=== PATIENT | female | born 1975 | race Caucasian/White ===

== ENCOUNTER 2016-11-12 14:04 | Emergency (ER) | payer MEDICAID ==
[~2016-11-12] VITALS: Ht 162.6 cm; Wt 78.5 kg
[~2016-11-12 14:04] MED LIST: AUGM875T PO; BENZ100 PO; CELE100C PO; OMEP20TA39 PO; SERT50 PO; ZOLP10TA3 PO
[2016-11-12 14:10] VITALS: BP 125/85; PULSE 105; RESP 18; TEMP 98.2; O2SAT 98
--- NOTE | 2016-11-12 14:26 | PD ---
HPI Chief Complaint: Abdominal Pain Time Seen by Provider: 14:15 Travel History International Travel<30 days: No Contact w/Intl Traveler<30days: No Traveled to known affect area: No History of Present Illness HPI The patient is a 40-year-old female who presents emergency department for frequency, urgency, and suprapubic discomfort. The patient has a history of UTIs with similar symptoms in the past. She notes a 4 day history of frequency, urgency, with episodes where she only voids a small amount of urine, however, will need to urinate once again in 10 minutes. She denies any actual dysuria or burning, but states she normally does not have burning when she has a UTI. She does complain of mild suprapubic discomfort and bloating but denies any back pain. Her last menstrual cycle was 2 weeks ago, history of tubal ligation, denies . She denies any acute vaginal discharge. She denies any hematuria or history of nephrolithiasis. She does complain of mild nausea, however, was able to eat lunch without difficulty prior to arrival. She denies any vomiting, diarrhea, change in bowel habits. The patient's primary physician is Dr. Liao. [facility] Past Medical History Arthritis: Yes Anxiety: Yes Depression: Yes Cancer: No Diabetes: No Diminished Hearing: No Endocrine: No Gastrointestinal Disorders: Yes (ACID REFLUX, INFLAMMED ESOPHAGUS) GERD: Yes Glaucoma: No Hepatitis: No Hiatal Hernia: No Hypertension: No Immune Disorder: No Musculoskeletal: Yes (SCOLIOSIS, ARTHRITIS ) Neurologic: Yes (HEADACHES) Psychiatric: Yes (ANXIETY) Immunizations Current: Yes Thyroid Disease: No ?: Not Menopausal: No : 7 Para: 2 Miscarriage: 3 : 1 Dilation and Curettage (D&C): Yes (x 1 -05/09) Tubal Ligation: Yes Past Surgical History AICD: No Body Medical Devices: BREASTS Gynecologic Surgery: Yes (HX OF CONE BIOPSY, D & C X2)) Joint Replacement: No Pacemaker: No Thoracic Surgery: Yes (FREDERIC BREAST AUGMENTATION) Other Surgery: Yes (TUMOR REMOVAL RIGHT THUMB 09/18/13) Social History Alcohol Use: Yes (occas. mix drinks) Tobacco Use: Yes (1/2 -1 PPD) Substance Use: No Allergies-Medications (Allergen,Severity, Reaction): Coded Allergies: Beba (Verified Allergy, Severe, Rash, 11/12/16) Sulfa (Verified Allergy, Severe, Anaphylaxis, 11/12/16) Reported Meds & Prescriptions Reported Meds & Active Scripts Active Reported Ambien (Zolpidem Tartrate) 10 Mg Tab 10 Mg PO HS PRN Omeprazole 40 Mg Cap 40 Mg PO DAILY Celebrex (Celecoxib) 200 Mg Cap 200 Mg PO BID Zoloft (Sertraline HCl) 50 Mg Tab 50 Mg PO DAILY Review of Systems Except as stated in HPI: all other systems reviewed are Neg General / Constitutional: No: Fever Gastrointestinal: Positive: Nausea, No: Vomiting, Abdominal Pain, Constipation , Changes in Bowel Habits Genitourinary: Positive: Urgency, Frequency, Pelvic Pain, No: Dysuria, Hematuria, Discharge, Vaginal Bleeding Physical Exam Narrative GENERAL: Awake, alert, very pleasant 40-year-old female who appears her stated age and is in no acute respiratory distress. SKIN: Focused skin assessment warm/dry. HEAD: Atraumatic. Normocephalic. EYES: Pupils equal and round. No scleral icterus. No injection or drainage. ENT: No nasal bleeding or discharge. Mucous membranes pink and moist. NECK: Trachea midline. No JVD. GASTROINTESTINAL: Abdomen soft, mild suprapubic tenderness. No rebound tenderness, guarding, rigidity. Back: No CVA tenderness. MUSCULOSKELETAL: No obvious deformities. No clubbing. No cyanosis. No edema. NEUROLOGICAL: Awake and alert. No obvious cranial nerve deficits. Motor grossly within normal limits. Normal speech. PSYCHIATRIC: Appropriate mood and affect; insight and judgment normal. Data Data Last Documented VS Vital Signs Date Time Temp Pulse Resp B/P Pulse Ox O2 Delivery O2 Flow Rate FiO2 11/12/16 14:10 98.2 105 18 125/85 98 Orders Urinalysis - C+S If Indicated (11/12/16 14:22) Ed Urine Pregnancytest Poc (11/12/16 14:22) Labs Laboratory Tests Test 11/12/16 14:10 Urine Collection Type CLEAN CATCH Urine Color YELLOW Urine Turbidity CLEAR Urine pH 5.5 Urine Specific [place] 1.024 Urine Protein NEG mg/dL Urine Glucose (UA) NEG mg/dL Urine Ketones NEG mg/dL Urine Occult Blood NEG Urine Nitrite NEG Urine Bilirubin NEG Urine Leukocyte Esterase NEG Urine WBC 0-2 /hpf Urine Squamous Epithelial > 8 /hpf Cells Urine Bacteria OCC /hpf Microscopic Urinalysis Comment CULT NOT INDICATED Urine Collection Time 14:10 [facility] Medical Decision Making Medical Screen Exam Complete: Yes Emergency Medical Condition: Yes Medical Record Reviewed: Yes Interpretation(s) Laboratory Tests Test 11/12/16 14:10 Urine Collection Type CLEAN CATCH Urine Color YELLOW Urine Turbidity CLEAR Urine pH 5.5 Urine Specific [place] 1.024 Urine Protein NEG mg/dL Urine Glucose (UA) NEG mg/dL Urine Ketones NEG mg/dL Urine Occult Blood NEG Urine Nitrite NEG Urine Bilirubin NEG Urine Leukocyte Esterase NEG Urine WBC 0-2 /hpf Urine Squamous Epithelial > 8 /hpf Cells Urine Bacteria OCC /hpf Microscopic Urinalysis Comment CULT NOT INDICATED Urine Collection Time 14:10 Differential Diagnosis Differential diagnosis includes UTI, hemorrhagic cystitis, nephrolithiasis, vaginitis, cervicitis, dysmenorrhea. Narrative Course A bedside UA test was obtained and UA was sent to lab. The patient's UA reveals bacteria but there are no WBCs, therefore, no culture will be obtained. I did review her EMR, she has had positive cultures in the past with strep saphro and Klebsiella pneumonia. The patient states her symptoms are very similar to her previous infections, she denies any current vaginal discharge or risk factors for STIs. Therefore the patient will be treated with Cipro and Pyridium. The patient is advised to follow-up with her primary physician is symptoms persist. Diagnosis Primary Impression: Cystitis Patient Instructions: General Instructions Additional Instructions: Medications as directed. Follow-up with your primary physician. Return if symptoms worsen or progress. Med/Other Pt SpecificInfo: Prescription(s) given Scripts Phenazopyridine (Pyridium)100 Mg [id number] Mg PO Q8H PRN (DYSURIA) 2 Days Ref 0 Prov:Jovon Núñez MD 11/12/16 Ciprofloxacin (Cipro)500 Mg [id number] Mg PO BID 3 Days Ref 0 Prov:Jovon Núñez MD 11/12/16 Disposition: 01 DISCHARGE HOME Condition: Stable Jovon Núñez MD Nov 12, 2016 14:26
[2016-11-12] MEDS ORDERED: CELE200C PO (14:31)
[2016-11-12] MEDS ORDERED: ZOLO50TA PO (14:31)
[2016-11-12] MEDS ORDERED: AMBI10TA PO (14:31)
[2016-11-12] MEDS ORDERED: OMEP40CA2 PO (14:31)
[2016-11-12 14:32] LABS: BLOOD, URINE NEG (NEG); GLUCOSE,URINE NEG (NEG); KETONE, URINE NEG (NEG); NITRITE,URINE NEG (NEG); PH, URINE 5.5 (5.0-8.5)
[2016-11-12 14:35] LABS: METHOD OF COLLECTION CLEAN CATCH; URINE COLOR YELLOW (YELLW/STRAW)
[2016-11-12 14:36] LABS: BACTERIA, URINE OCC /hpf; COMMENT (UR) CULT NOT INDICATED; CULTURE IF INDICATED CULT NOT INDICATED; SQUAMOUS EPITHELIAL CELL URINE > 8 /hpf (0-5); WBC, URINE 0-2 /hpf (0-5)
[2016-11-12] MEDS ORDERED: CIPR-9 PO (14:53)
[2016-11-12] MEDS ORDERED: PHEN0.4T PO (14:53)
== END 2016-11-12 15:08 | disposition home or self-care (01) ==
LOC: PHED 14:04
DX: N30.90 Cystitis, unspecified without hematuria (principal)
CPT/HCPCS: 81001; 84703; 99284

== ENCOUNTER 2017-05-24 17:44 | Emergency (ER) | payer SELFPAY ==
[~2017-05-24] VITALS: Ht 162.6 cm; Wt 81.3 kg
[~2017-05-24 17:44] MED LIST changes: +AMBI10TA PO; -AUGM875T PO; -BENZ100 PO; -CELE100C PO; +CELE200C PO; +CIPR-9 PO; -OMEP20TA39 PO; +OMEP40CA2 PO; +PHEN0.4T PO; -SERT50 PO; +ZOLO50TA PO; -ZOLP10TA3 PO
[2017-05-24 17:48] VITALS: BP 125/74; PULSE 81; RESP 18; TEMP 98.2; O2SAT 97
--- NOTE | 2017-05-24 18:06 | PD ---
HPI Chief Complaint: Complaint Time Seen by Provider: 17:53 Travel History International Travel<30 days: No Contact w/Intl Traveler<30days: No Traveled to known affect area: No History of Present Illness HPI The patient is a 41-year-old female who presents to the emergency department with 2 weeks of lower pelvic discomfort, dysuria, frequency, and urgency. The patient has a history of UTIs with similar symptoms. The patient is a , denies current . She also complains of mild abdominal bloating with her pelvic discomfort, denies any nausea, vomiting, or diarrhea. The patient denies any assisted fever, chills, or sweats. She does note a thin white vaginal discharge, denies any sexual activity in the last 2 weeks. Symptoms are mild to moderate, possibly exacerbated by underlying UTI, there are no current alleviating factors. PFSH Past Medical History Arthritis: Yes Anxiety: Yes Depression: Yes Cancer: No Diabetes: No Diminished Hearing: No Endocrine: No Gastrointestinal Disorders: Yes (ACID REFLUX, INFLAMMED ESOPHAGUS) GERD: Yes Glaucoma: No Hepatitis: No Hiatal Hernia: No Hypertension: No Immune Disorder: No Musculoskeletal: Yes (SCOLIOSIS, ARTHRITIS ) Neurologic: Yes (HEADACHES) Psychiatric: Yes (ANXIETY) Immunizations Current: Yes Thyroid Disease: No ?: Not Menopausal: No : 7 Para: 2 Miscarriage: 3 : 1 Dilation and Curettage (D&C): Yes (x 1 -05/09) Tubal Ligation: Yes Past Surgical History AICD: No Body Medical Devices: BREASTS Gynecologic Surgery: Yes (HX OF CONE BIOPSY, D & C X2)) Joint Replacement: No Pacemaker: No Thoracic Surgery: Yes (FREDERIC BREAST AUGMENTATION) Other Surgery: Yes (TUMOR REMOVAL RIGHT THUMB 09/18/13) Social History Alcohol Use: Yes (occas. mix drinks) Tobacco Use: Yes (1/2 -1 PPD) Substance Use: No Allergies-Medications (Allergen,Severity, Reaction): Coded Allergies: Sulfa (Sulfonamide Antibiotics) (Verified Allergy, Severe, Anaphylaxis, ) fexofenadine (Verified Allergy, Severe, Rash, 05/24/17) Reported Meds & Prescriptions Reported Meds & Active Scripts Active Pyridium (Phenazopyridine HCl) 100 Mg Tab 100 Mg PO Q8H PRN 2 Days Reported Ambien (Zolpidem Tartrate) 10 Mg Tab 10 Mg PO HS PRN Omeprazole 40 Mg Cap 40 Mg PO DAILY Celebrex (Celecoxib) 200 Mg Cap 200 Mg PO BID Zoloft (Sertraline HCl) 50 Mg Tab 50 Mg PO DAILY Review of Systems Except as stated in HPI: all other systems reviewed are Neg General / Constitutional: No: Fever Gastrointestinal: Positive: Abdominal Pain (bloating), No: Nausea, Vomiting, Diarrhea, Constipation, Changes in Bowel Habits, Indigestion, Loss of Appetite Genitourinary: Positive: Urgency, Frequency, Dysuria, Pelvic Pain, Discharge, No: Hematuria, Vaginal Bleeding Skin: No Rash, No Itching Physical Exam Narrative GENERAL: Awake, alert, pleasant 41-year-old female who appears her stated age and is in no acute respiratory distress. SKIN: Focused skin assessment warm/dry. HEAD: Atraumatic. Normocephalic. EYES: No injection or drainage. ENT: No nasal bleeding or discharge. Mucous membranes pink and moist. NECK: Trachea midline. No JVD. GASTROINTESTINAL: Abdomen soft, minimal suprapubic tenderness. Back: No CVA tenderness. Pelvic: The exam was performed in the presence of a female nurse. External examination reveals no rashes or lesions. Speculum examination reveals white discharge in the vaginal vault. Cervix is closed. Mild cervical motion tenderness. No adnexal tenderness. MUSCULOSKELETAL: No obvious deformities. No clubbing. No cyanosis. No edema. NEUROLOGICAL: Awake and alert. No obvious cranial nerve deficits. Motor grossly within normal limits. Normal speech. PSYCHIATRIC: Appropriate mood and affect; insight and judgment normal. Data Data Last Documented VS Vital Signs Date Time Temp Pulse Resp B/P (MAP) Pulse Ox O2 Delivery O2 Flow Rate FiO2 05/24/17 17:48 98.2 81 18 125/74 (91) 97 Orders Orders Urinalysis - C+S If Indicated (05/24/17 18:01) Ed Urine Pregnancytest Poc (05/24/17 18:01) Gc And Chlamydia Pcr (05/24/17 18:30) Wet Prep Profile (05/24/17 18:30) Ceftriaxone Inj (Rocephin Inj) (05/24/17 18:30) Lidocaine 1% Inj (50 Ml) (Xylocaine 1% I (05/24/17 18:30) Azithromycin (Zithromax) (05/24/17 18:30) Labs Laboratory Tests Test 05/24/17 18:15 05/24/17 18:42 Urine Color ORANGE Urine Turbidity CLEAR Urine pH 5.5 Urine Specific [place] 1.020 Urine Protein NEG mg/dL Urine Glucose (UA) NEG mg/dL Urine Ketones TRACE mg/dL Urine Occult Blood NEG Urine Nitrite POS Urine Bilirubin NEG Urine Leukocyte Esterase NEG Urine WBC 0-2 /hpf Urine Squamous Epithelial Cells 0-5 /hpf Urine Bacteria RARE /hpf Microscopic Urinalysis Comment CULT NOT INDICATED Clue Cells (Wet Prep) NONE SEEN Vaginal Trichomonas (Wet Prep) NONE SEEN Vaginal Yeast (Wet Prep) NONE SEEN MDM Medical Decision Making Medical Screen Exam Complete: Yes Emergency Medical Condition: Yes Medical Record Reviewed: Yes Interpretation(s) Laboratory Tests Test 05/24/17 18:15 Urine Color ORANGE Urine Turbidity CLEAR Urine pH 5.5 Urine Specific [place] 1.020 Urine Protein NEG mg/dL Urine Glucose (UA) NEG mg/dL Urine Ketones TRACE mg/dL Urine Occult Blood NEG Urine Nitrite POS Urine Bilirubin NEG Urine Leukocyte Esterase NEG Urine WBC 0-2 /hpf Urine Squamous Epithelial Cells 0-5 /hpf Urine Bacteria RARE /hpf Microscopic Urinalysis Comment CULT NOT INDICATED Differential Diagnosis Differential diagnosis includes UTI, cystitis, vaginitis, cervicitis, PID, partial small bowel obstruction. Narrative Course A UA was sent to lab. Bedside UA test was obtained. Bedside UA test was negative. UA revealed nitrites, but no wbc's, rare bacteria. Therefore, pelvic exam was performed and wet prep and gonorrhea/ chlamydia were sent to lab. The patient was also administered Rocephin 250 mg IM and Zithromax 1 g by mouth. Diagnosis Primary Impression: Pelvic pain in female Additional Impressions: Vaginal discharge Dysuria Patient Instructions: General Instructions Additional Instructions: Pyridium as directed. Follow-up with her primary physician. Return if symptoms worsen or progress. Please provide the patient a copy of her lab results at discharge. Med/Other Pt SpecificInfo: Prescription(s) given Scripts Phenazopyridine (Pyridium) 100 Mg Tab 200 MG PO Q8H Y for DYSURIA for 2 Days, #12 TAB 0 Refills Prov: Jovon Núñez MD 05/24/17 Disposition: 01 DISCHARGE HOME Condition: Stable Jovon Núñez MD May 24, 2017 18:06
[2017-05-24 18:21] LABS: BILIRUBIN, URINE NEG (NEG); BLOOD, URINE NEG (NEG); GLUCOSE,URINE NEG (NEG); KETONE, URINE TRACE mg/dL (NEG); NITRITE,URINE POS (NEG); PH, URINE 5.5 (5.0-8.5); URINE LEUKOCYTE ESTERASE NEG (NEG)
[2017-05-24 18:26] LABS: URINE COLOR ORANGE (YELLW/STRAW)
[2017-05-24 18:27] LABS: BACTERIA, URINE RARE /hpf; SQUAMOUS EPITHELIAL CELL URINE 0-5 /hpf (0-5); WBC, URINE 0-2 /hpf (0-5)
[2017-05-24] MEDS ORDERED: LIDOCAINE HCL 1% 50 ML VIAL IM ONE (18:30)
[2017-05-24] MEDS ORDERED: AZITHROMYCIN 250 MG TAB PO ONE (18:30)
[2017-05-24] MEDS ORDERED: cefTRIAXone 250 MG VIAL IM ONE (18:30)
[2017-05-24] MEDS ORDERED: PHEN0.4T PO ×2 (18:54→19:06)
[2017-05-24 19:53] VITALS: BP 142/86; PULSE 74; RESP 18; O2SAT 98
== END 2017-05-24 19:56 | disposition home or self-care (01) ==
LOC: PHED 17:44
DX: R10.2 Pelvic and perineal pain (principal); N89.8 Other specified noninflammatory disorders of vagina; R30.0 Dysuria; M41.9 Scoliosis, unspecified; M19.90 Unspecified osteoarthritis, unspecified site; K21.9 Gastro-esophageal reflux disease without esophagitis; F41.9 Anxiety disorder, unspecified; F32.9 Major depressive disorder, single episode, unspecified; F17.200 Nicotine dependence, unspecified, uncomplicated
CPT/HCPCS: 81001; 84703; 87210; 87491; 87591; 96372; 99284; J0696